=== PATIENT | female | born 1995 | race American Indian/Alaskan Native ===

== ENCOUNTER 2021-12-13 15:23 | Emergency (ER) | payer SELFPAY ==
[2021-12-13 16:45] VITALS: BP 104/53
--- NOTE | 2021-12-13 18:00 | Emergency Department Report ---
ED General Adult HPI - General Chief complaint: Chest Pain Stated complaint: CHEST PAIN/GENERAL WEAKNESS Time Seen by Provider: 12/13/21 16:48 Source: patient Mode of arrival: Ambulatory Limitations: No Limitations - History of Present Illness Initial comments: 26-year-old female [facility] emerge department complaining of a near 1 week history of left breast pain in the area of's possible nodule which she thinks may have discovered in pain radiating up and down her left side to her and she is worried that something may be happening in the breast. She states she has been told she had issues with the breast in the past but reports no fever, chills, sweats. No nipple discharge no nausea no vomiting -: Gradual, week(s) (1) Location: chest Radiation: non-radiation Severity scale (0 -10): 8 Quality: aching, dull Consistency: constant Improves with: none Worsens with: none Associated Symptoms: denies: confusion, diaphoresis, fever/chills, loss of appetite, malaise, nausea/vomiting, shortness of breath, syncope, weakness - Related Data Allergies Allergy/AdvReac Type Severity Reaction Status Date / Time No Known Allergies Allergy Unverified 12/13/21 16:40 ED Review of Systems ROS: Stated complaint: CHEST PAIN/GENERAL WEAKNESS Other details as noted in HPI Comment: All other systems reviewed and negative ED Physical Exam - General Limitations: No Limitations General appearance: alert, in no apparent distress - Head Head exam: Present: atraumatic, normocephalic - Eye Eye exam: Present: normal appearance - ENT ENT exam: Present: mucous membranes moist, other - Neck Neck exam: Present: normal inspection - Respiratory Respiratory exam: Present: normal lung sounds bilaterally, chest wall tenderness (Tenderness to the left breast with a small nodular mass along the lateral side and tenderness along the tail of Barron. No areola pain no nipple discharge no skin color change. No axillary lymphadenopathy or epitrochlear lymphadenopathy is appreciated.). Absent: respiratory distress - Cardiovascular Cardiovascular Exam: Present: regular rate, normal rhythm. Absent: systolic murmur, diastolic murmur, rubs, gallop - GI/Abdominal GI/Abdominal exam: Present: soft, normal bowel sounds - Extremities Exam Extremities exam: Present: normal inspection - Back Exam Back exam: Present: normal inspection - Neurological Exam Neurological exam: Present: alert, oriented X3 - Psychiatric Psychiatric exam: Present: normal affect, normal mood - Skin Skin exam: Present: warm, dry, intact, normal color. Absent: rash ED Course Vital Signs 12/13/21 16:41 Temperature 98.1 F Pulse Rate 63 Respiratory 18 Rate Blood Pressure 104/53 [Right] O2 Sat by Pulse 99 Oximetry ED Medical Decision Making - Lab Data Result diagrams: 12/13/21 18:48 Critical care attestation.: If time is entered above; I have spent that time in minutes in the direct care of this critically ill patient, excluding procedure time. ED Disposition Clinical Impression: Breast pain Disposition: HOME / SELF CARE / HOMELESS Is pt being admited?: No Does the pt Need Aspirin: No Condition: Stable Instructions: Breast Tenderness Additional Instructions: The patient reports her primary care provider to further evaluate your breast lump as you eloped from the emergency department prior to receiving your ultrasound Referrals: PRIMARY CAREMD [Primary Care Provider] - 3-5 Days
--- NOTE | 2021-12-13 18:23 | XRay Report ---
CHEST 2 VIEWS INDICATION: chest pain. COMPARISON: None FINDINGS: SUPPORT DEVICES: None. HEART: Within normal limits. LUNGS/PLEURA: No acute air space or interstitial disease. No pneumothorax. ADDITIONAL FINDINGS: None. IMPRESSION: 1. No acute findings. Signer Name: Madi Chiu MD Signed: 12/13/2021 6:19 PM Workstation Name: [id number]
[2021-12-13 19:59] LABS: Hematocrit 38.2 % (30.3-42.9); Hemoglobin 12.8 gm/dl (10.1-14.3); Mean Corpuscular HGB Conc 33 % (30-34); Mean Corpuscular Volume 92 fl (79-97); Platelet Count 239 K/mm3 (140-440); Red Blood Count 4.14 M/mm3 (3.65-5.03); Red Cell Distribution Width 13.2 % (13.2-15.2)
== END 2021-12-14 07:28 | disposition home or self-care (01) ==
LOC: ED 15:23
DX: N64.4 Mastodynia (principal)
CPT/HCPCS: 36415; 71046; 85027; 99283